=== PATIENT | male | born 1975 | race Caucasian/White ===

== ENCOUNTER 2019-04-11 10:37 | Observation (INO) ==
[2019-04-11 11:13] LABS: Basophils % 0.6 %; Eosinophils # 0.1 K/mcL (0.0-0.6); Eosinophils % 1.9 %; Hematocrit 45.8 % (37.5-50.1); Immature Granulocytes % 0.6 % (0-4); Lymphocytes # 1.8 K/mcL (0.6-4.6); Lymphocytes % 24.5 %; Mean Corpuscular HGB Conc 34.9 g/dL (31.6-35.5); Mean Corpuscular Hemoglobin 30.9 pg (28.0-33.3); Mean Corpuscular Volume 88.6 fL (83.0-100.0); Mean Platelet Volume 9.6 fL (9.4-12.4); Monocytes # 0.6 K/mcL (0.0-1.3); Monocytes % 8.7 %; Neutrophils # 4.6 K/mcL (1.6-8.9); Platelet Count 291 K/mcL (140-400); Red Blood Count 5.17 M/mcL (4.19-5.50); Red Cell Distribution Width 12.3 % (11.5-14.5); Segmented Neutrophils % 63.7 %
[2019-04-11] MEDS ORDERED: Aspirin 325 MG TABLET PO ONE (11:21)
--- NOTE | 2019-04-11 11:26 | Emergency Department Note ---
Disposition Clinical Impression: Hyperglycemia Chest pain Qualifiers: Chest pain type: unspecified Qualified Code(s): R07.9 - Chest pain, unspecified Disposition: Admitted As Inpatient Condition: Fair Referrals: NONE,PCP [Primary Care Provider] - Forms: ED Satisfaction Letter Time of Disposition: 12:20 Chest Pain HPI - General Chief Complaint: ED Chest Pain Stated Complaint: Chest Pain Elevated BP Time Seen by Provider: 04/11/19 10:58 Source: patient Mode of arrival: ambulatory Limitations: no limitations Vital Signs Reviewed: Yes Nursing Notes Reviewed: Yes - History of Present Illness HPI Narrative: 43-year-old male presents for evaluation of chest pain and elevated blood pressure. Patient states he has had intermittent chest pain over the past week. Describes it in multiple locations across his chest. Described as chest pressure. Last 1-2 minutes at a time and then resolves. Patient denies a prior history of any cardiac disease. States he became more concerned today when he became diaphoretic and checked his blood pressure noted to be in the 150 systolic. Patient does not follow with her primary care doctor and does not have a history of elevated blood pressure. Patient states these also had chest pain into his right arm. Patient denies any fevers or cough. No dyspnea. Patient does have family history with heart disease in the 50s. Patient denies any abdominal pain. Patient currently denies any chest pain. No vomiting. No history of DVT or PE. No recent travel. No history of any active malignancies. Severity scale (1-10): 5 - Related Data Allergies Allergy/AdvReac Type Severity Reaction Status Date / Time No Known Allergies Allergy Verified 04/11/19 10:43 All systems ED: reviewed and negative except as stated. Constitutional: Denies: fever Cardiovascular: Reports: chest pain Respiratory: Denies: cough, dyspnea Gastrointestinal: Denies: abdominal pain, nausea, vomiting Chest Pain PMH - Past Medical History Medical history: Reports: no medical history Psychiatric history: Reports: no psych history - Social History Smoking Status: Never smoker Alcohol use: Reports: occasionally Drug use: Reports: none Physical Exam - General Limitations: no limitations General appearance: alert, in no apparent distress - Head Head exam: atraumatic, normocephalic, normal inspection - Eye Eye exam: Present: normal appearance - ENT ENT exam: normal exam - Chest Chest inspection: Present: normal inspection, symmetric chest wall rise - Respiratory Respiratory exam: Present: normal lung sounds bilaterally. Absent: respiratory distress - Cardiovascular Cardiovascular exam: Present: regular rate, normal rhythm. Absent: normal heart sounds - Abdominal Exam Abdominal exam: Present: soft, Non-Tender - Extremities Exam Extremities exam: Present: normal inspection. Absent: pedal edema - Back Exam Back exam: Present: normal inspection - Neurological Exam Neurological exam: Present: alert, oriented X3, CN II-XII intact - Skin Skin exam: Present: warm, dry, intact, normal color Course Course Narrative: Patient seen and examined. Patient does have risk factors for ACS including elevated blood pressure. Patient does have a concerning history of diaphoresis radiation to the right arm as well as intervention chest pain. Even though the patient's pain has been intermittent over a period of time patient would likely benefit from admission for continued ACS evaluation. - Reevaluation(s) Reevaluation #1: Patient's repeat EKG shows normal sinus rhythm. T-wave inversion in 3 and aVF. Unchanged from prior. No ST elevation. No ST depression Time: 11:55 Vital Signs Temperature 98.1 F 04/11/19 10:40 Pulse Rate 76 04/11/19 10:40 Respiratory Rate 16 04/11/19 10:40 Blood Pressure 154/94 04/11/19 10:40 O2 Sat by Pulse Oximetry 100 04/11/19 10:40 Temperature 98.1 F 04/11/19 10:40 Pulse Rate 73 04/11/19 11:58 Respiratory Rate 16 04/11/19 10:40 Blood Pressure 137/97 04/11/19 11:58 O2 Sat by Pulse Oximetry 99 04/11/19 11:58 Oxygen Delivery Oxygen Delivery Room Air Chest Pain - [facility] Narrative Medical decision making narrative: Patient presents for concerns of chest pain. Patient does have a concerning history. Patient has moderate risk heart score. No concerns for PE and/or dissection. Patient does have an abnormal EKG with no prior comparisons. Patient's labs show elevated blood sugar likely secondary to undiagnosed hyperglycemia and diabetes. Patient is also noted be hypertensive. Patient is agreeable with admission. - Lab Data Lab results reviewed: Yes I reviewed the patient's lab results. Result diagrams: 04/11/19 10:59 04/11/19 10:59 Lab Results 04/11/19 04/11/19 Range/Units 10:59 10:59 WBC 7.2 (4.3-11.1) K/mcL RBC 5.17 (4.19-5.50) M/mcL Hgb 16.0 (12.9-16.9) g/dL Hct 45.8 (37.5-50.1) % MCV 88.6 (83.0-100.0) fL MCH 30.9 (28.0-33.3) pg MCHC 34.9 (31.6-35.5) g/dL RDW 12.3 (11.5-14.5) % Plt Count 291 (140-400) K/mcL MPV 9.6 (9.4-12.4) fL Immature Gran % 0.6 (0-4) % Seg Neutrophils % 63.7 % Lymphocytes % 24.5 % Monocytes % 8.7 % Eosinophils % 1.9 % Basophils % 0.6 % Neutrophils # 4.6 (1.6-8.9) K/mcL Lymphocytes # 1.8 (0.6-4.6) K/mcL Monocytes # 0.6 (0.0-1.3) K/mcL Eosinophils # 0.1 (0.0-0.6) K/mcL Basophils # 0.0 (0.0-0.2) K/mcL Sodium 135 L (136-145) mEq/L Potassium 4.0 (3.5-5.1) mEq/L Chloride 102 (98-107) mEq/L Carbon Dioxide 24 (23-29) mEq/L BUN 15 (6-20) mg/dL Creatinine 0.91 (0.70-1.30) mg/dL Est GFR ( Amer) > 60 (> 60) Est GFR (Non-Af Amer) > 60 (> 60) BUN/Creatinine Ratio 16 (6-26) Glucose 314 H (70-105) mg/dL Calculated Osmolality 293 (280-300) Calcium 9.9 (8.6-10.3) mg/dL Troponin I < 0.03 (< 0.04) ng/mL - Radiology Data Radiology results reviewed: Yes I reviewed the patient's radiology results. Chest X-Ray 04/11/19 10:54 IMPRESSION: Negative chest. D/ / Kai Galvan MD / Kai Galvan MD Interpreting Provider: Kai Galvan MD - EKG Data EKG attestation: Yes I reviewed and interpreted this EKG. EKG shows normal: sinus rhythm Rate: normal Rhythm: NSR [place]/QRS: normal T wave inversions noted in: III, aVR, v1 Interpretation: no acute changes, nonspecific ST-T wave changes Heart Score - Score History: Highly Suspicious EKG: Non Specific repolarisation Disturbance Age: Less than 45 Risk Factors: 1-2 risk factors Troponin: Less than normal limit HEART Score Total: 4 S.B.A.R. - S.B.A.R. Situation: Demographics Background: Presenting Complaint Assessment: Vital Signs, Course and respsone to treatment, Patient/Family Expectation Recommendation: Barrier(s) to disposition, Recommendation based on pending studies, treatments, or consults S.B.A.RYoanna Report Given to: Dr. Emeterio GonzalezBYoannaAYuridia Repor Time: 12:20 Attestation Statement - Attestation Attestation: This documentation is done with the assistance of Dragon dictation. Despite efforts made to ensure accuracy, there may be inaccuracies in transcription coordinator or spelling and typographical errors. I examined this patient and my medical decision-making was reviewed with the Resident Physician. I agree with the documented findings, disposition and treatment plan as described except to the extent set forth below. Patient seen and evaluated today by Dr. Covington myself, I agree with his evaluation and management plan, I supervised the care of the patient throughout stay. Patient was at work today, had chest pain and diaphoresis was not short of breath he said last about 2030 minutes and resolve. He states this is happened to him several times before. He does have hypertension no other real risk factors for heart disease except one of his parents had an NC at age 50. He says that he does not a primary care but is establishing with 1. No pain at this time were going to do a workup on him and then reassess. Talked about staying in the hospital versus going home he preferred to go home. We discussed more once all his labs are back he is in agreement with this plan.
[2019-04-11 11:38] LABS: BUN/Creatinine Ratio 16 (6-26); Blood Urea Nitrogen 15 mg/dL (6-20); Calcium 9.9 mg/dL (8.6-10.3); Carbon Dioxide 24 mEq/L (23-29); Chloride 102 mEq/L (98-107); Glucose 314 mg/dL (70-105); Osmolality,Calculated 293 (280-300); Sodium 135 mEq/L (136-145); Troponin I < 0.03 ng/mL (< 0.04); eGFR For Non-African Americans > 60 (> 60)
[2019-04-11] MEDS ORDERED: Acetaminophen 325 MG TABLET PO PRN (12:58)
[2019-04-11] MEDS ORDERED: Naloxone 0.4 MG/ML INJ IVP PRN (12:58)
--- NOTE | 2019-04-11 13:09 | Internal Med History&Physical ---
Date of Encounter: 04/11/19 Time of Encounter: 13:02 Internal Medicine - H&P: HPI Chief complaint: Chest pain Admitted From: Emergency Dept Plans for Post Hospital Care: Home History of present illness: Mr. 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 Patient does not have any recent history of surgeries or being bedbound for a prolonged period of time. He does not also have any history of lower extremity swelling. He denies being a smoker or a lcoholic and does not do IV drugs. He does have a family history positive for heart attack in his father which he is not sure of the age of occurrence. He is not aware of any history of blood clots in his family members. He is no history of any sick contacts recently and does not have any nausea vomiting or diaphoresis at the current time. He denies using any performance-enhancing drugs and denies doing any excessive strenuous activity in the recent past. In the ER the patient was given 1 dose of aspirin with improvement of his pain and an EKG showed a T-wave inversion in lead 3 and not so much in the other contiguous leads. The patient also tells me that he has checked his blood pressure "several times" at the [employer] with the same blood pressure cuff and his blood pressure systolic has ranged from 130s to 140s. He is not on any blood pressure medications. The patient also just recently found a primary care physician and his first appointment is next week The patient's blood glucose level was more than 300 on a BMP check. He is not aware of any diabetes diagnosis that he carries but there is definite diagnosis of type 2 diabetes in his family members .he is not aware of the age of onset of their diabetes Past Med Surg Social Fam HX - Past Medical History Medical history: no medical history Psychiatric history: no psych history - Social History Smoking Status: Never smoker Smokeless Tobacco Status: No Alcohol use: occasionally Drug use: none - Additional Family History Additional family history: Family history positive for heart attack and diabetes unsure of the age of onset Internal Medicine - H&P: Meds Allergy/AdvReac Type Severity Reaction Status Date / Time No Known Allergies Allergy Verified 04/11/19 10:43 All Systems PM: A 10-system review of systems was performed and is negative for pertinent findings except as documented above in the HPI. - Constitutional Vitals: Temp Pulse Resp BP Pulse Ox 98.1 F 73 16 137/97 99 04/11/19 10:40 04/11/19 11:58 04/11/19 10:40 04/11/19 11:58 04/11/19 11:58 Exam: GENERAL: Alert, mild distress, cooperative EYES: PERRLA, EOMI EARS: External ears normal, canals clear OROPHARYNX: Lips, mucosa, and tongue normal. Teeth and gums normal. Oropharynx normal. NECK: No jugulovenous distention, No carotid bruits, Carotid pulse normal contour, Supple LUNGS: Lungs clear to auscultation, Good diaphragmatic excursion CARDIAC: Normal S1 and S2; no rubs, murmurs, or gallops ABDOMEN: Abdomen soft, non-tender, BS normal, No masses or organomegaly EXTREMITIES: Extremities normal, no deformities, edema, clubbing or skin discoloration. Good capillary refill., No ulcers NEURO: Gait normal. Reflexes normal and symmetric. Sensation grossly intact, Cranial nerves II-XII intact PULSES: 2+ radial, 2+ carotid Rest of the exam is non contributory Internal Med - H&P Results - Labs CBC & Chem 7: 04/11/19 10:59 04/11/19 10:59 Labs: Short CBC 04/11/19 Range/Units 10:59 WBC 7.2 (4.3-11.1) K/mcL Hgb 16.0 (12.9-16.9) g/dL Hct 45.8 (37.5-50.1) % Plt Count 291 (140-400) K/mcL Neutrophils # 4.6 (1.6-8.9) K/mcL BMP 04/11/19 10:59 Sodium 135 L Potassium 4.0 Chloride 102 Carbon Dioxide 24 BUN 15 Creatinine 0.91 Glucose 314 H Calcium 9.9 Cardiac Enzymes 04/11/19 Range/Units 10:59 Troponin I < 0.03 (< 0.04) ng/mL - EKG Data -: EKG Interpreted by Myself (T-wave inversion in lead 3, rest of the EKG looks normal) - EKG Data Prior EKG available for review: no - Impressions ITS Impressions Chest X-Ray 04/11/19 10:54 IMPRESSION: Negative chest. D/ / Kai Galvan MD / Kai Galvan MD Interpreting Provider: Kai Galvan MD - Assessment and Plan (1) Essential hypertension Current Visit: Yes Status: Acute Assessment and plan: Patient has been educated to maintain a daily diary of his blood pressures. At this point I am not quite convinced that he needs to be medicated because we need more readings from a blood pressure standpoint. Consider sending the patient home with a blood pressure monitor Low salt diet has been advised (2) Chest pain Current Visit: Yes Status: Acute Assessment and plan: Patient has possible early onset diabetes which is a new diagnosis given his blood sugar He also has hypertension and a family history of coronary artery disease and diabetes all of which are risk factors. We will place him under observation and cycle cardiac enzymes as well as put him on telemetry monitoring. His first EKG is not very concerning to me but I will repeat one in the morning or if he has symptoms. The other differential could be gastritis versus reflux disease for which the tami hernandez already takes omeprazole but infrequently. We could try to give him daily omeprazole for at least 2 weeks duration to see if that helps his symptoms-this can be arranged at discharge Qualifiers: Chest pain type: unspecified Qualified Code(s): R07.9 - Chest pain, unspecified (3) Hyperglycemia Current Visit: Yes Status: Acute Assessment and plan: The patient's random blood sugar as a part of his BMP was 315. He does not have a history of diabetes but this seems to be very high. We will check hemoglobin A1c and serial Accu-Cheks. If his blood sugars come back elevated and we may need to institute sliding scale on him - Time Spent With Patient Total time spent is greater than 50% in coordination of care (as documented) at patient's floor/unit and/or counseling patient:
[2019-04-11 14:06] LABS: Estimated Average Glucose 243 mg/dl; Hemoglobin A1C 10.1 %
[2019-04-11] MEDS: Mag Hydrox/Al Hydrox/Simeth 30 ML UDC PO SCH (17:07)
[2019-04-12] MEDS: Mag Hydrox/Al Hydrox/Simeth 30 ML UDC PO SCH ×3 (00:18→13:18)
--- NOTE | 2019-04-12 04:01 | Electrocardiograph Report ---
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
--- NOTE | 2019-04-12 04:02 | Electrocardiograph Report ---
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
[2019-04-12] MEDS ORDERED: *HR* Dextrose 50 % in Water (Syg) 50 ML SYRINGE IVP PRN (07:41)
[2019-04-12] MEDS ORDERED: Dextrose Gel 15 GM/37.5 ML TUBE PO PRN ×2 (07:41)
[2019-04-12] MEDS ORDERED: D5% in Water 1,000 ML IVC PRN (07:41)
[2019-04-12] MEDS ORDERED: Insulin LISPRO 300 UNITS/3 ML VIAL SQ SCH ×2 (11:30→21:00)
[2019-04-12 11:51] VITALS: BP 130/87
--- NOTE | 2019-04-12 13:28 | Discharge Summary ---
<Serenity Morris - Last Filed: 04/12/19 13:57> - NOTES TO OUTPATIENT PROVIDER Notes to Outpatient Provider: Diagnosis of hypertension and diabetes. New medications include metformin, glimerpiride, and lisinopril Date of Encounter: 04/12/19 Time of Encounter: 13:26 - Discharge Diagnosis (1) Chest pain Priority: Primary Status: Acute Qualifiers: Chest pain type: unspecified Qualified Code(s): R07.9 - Chest pain, unspecified (2) Essential hypertension Priority: Secondary Status: Acute (3) Diabetes mellitus Priority: Secondary Status: Acute Qualifiers: Diabetes mellitus type: other specified (including SAIDA) Diabetes mellitus penitentiary insulin use: without exterminator termite use Diabetes mellitus complication status: without complication Qualified Code(s): E13.9 - Other specified diabetes mellitus without complications Hospital course: Mr. Flores is a 43 year old male who presented with complaint of intermittent chest pain for several days duration. He described chest pain as occurring in different locations over his chest, a burning sensation, lasting several minutes before resolving, and resolving with exertion. He had taken his blood pressure during one of these episodes and found his blood pressure to be 150/95, at this point she he decided to present to the emergency department. He has a past medical history of GERD. He will be establishing with a new PCP in one week in [facility]. The patient had a chest x-ray which showed no acute cardiopulmonary abnormality, an EKG which showed normal sinus rhythm without ST segment changes. Troponins were negative 3. Labs were significant for a glucose level of 314, with subsequent hemoglobin A1c level of 10.1. Patient admitted in order to trend troponins and complete cardiac workup. Patient's chest pain was atypical, with EKG or troponin elevations, less likely to be ischemic in nature. For his new diagnosis of diabetes mellitus, the patient will be started on metformin as well as glimepiride which will need to be further titrated by PCP. Patient will also be started on lisinopril for renal protection as well as hypertension. Vitals were reviewed, chest pain has resolved and patient stable for discharge with follow-up next week with primary care physician. Discharge discussed with: patient - Time Spent with Patient Total time spent providing and/or coordinating discharge services: - Discharge Medications Prescriptions: New Glimepiride [Amaryl] 2 mg PO DAILY #10 tablet metFORMIN [Glucophage] 500 mg PO DAILY #10 tablet Lisinopril [Zestril] 10 mg PO DAILY #10 tablet Continued Non-Formulary Medication 2 tab PO DAILY Multivit-Min/Folic/Vit K/Lycop [Men's Multivitamin Tablet] 2 tab PO DAILY Omeprazole [PriLOSEC] 40 mg PO DAILY PRN PRN Reason: GERD Home Medications: Multivit-Min/Folic/Vit K/Lycop [Men's Multivitamin Tablet] 2 tab PO DAILY 04/11/19 [History] Non-Formulary Medication 2 tab PO DAILY 04/11/19 [History] Omeprazole [PriLOSEC] 40 mg PO DAILY PRN 04/11/19 [History] Glimepiride [Amaryl] 2 mg PO DAILY #10 tablet 04/12/19 [Rx] Lisinopril [Zestril] 10 mg PO DAILY #10 tablet 04/12/19 [Rx] metFORMIN [Glucophage] 500 mg PO DAILY #10 tablet 04/12/19 [Rx] Allergies/Adverse Reactions: Allergy/AdvReac Type Severity Reaction Status Date / Time No Known Allergies Allergy Verified 04/11/19 13:55 Date of admission: 04/11/19 13:19 Primary care physician: PCP NONE Discharging clinician: Serenity Morris Anticipated date of discharge: 04/12/19 - Constitutional Vitals: Temp Pulse Resp BP Pulse Ox 98.2 F 63 14 130/87 97 04/12/19 11:44 04/12/19 11:44 04/12/19 11:44 04/12/19 11:44 04/12/19 11:44 Exam: Gen: Vitals noted. No acute distress. AAOx3 HEENT: PERRL/EOMI, oropharynx clear, Normocephalic, atraumatic, MMM Cardiac: RRR, no murmur, +S1/S2, radial and dorsal pedis pulses 3+ and symmetrical, no chest wall tenderness to palpation. Pulmonary: CTA bilaterally, no wheezes, rales or rhonchi, equal chest expansion Abdomen: soft, nontender, BS noted, no guarding, no rebound. MSK: ROM intact, no joint swelling noted Extremities: no BLE edema, no calf tenderness, no cyanosis or clubbing Neuro: A&Ox3, moves all extremities, no focal deficits Psych: Appropriate mood and behavior - Patient Status Disposition: Home, Self-Care Condition: Good Functional capacity at discharge: independent ambulation Overall status at discharge: patient is back to baseline - Discharge Instructions Instructions: How to Check Your Blood Sugar (DC), Diabetic Ketoacidosis (DC), Diabetic Foot Care (DC), Diabetic Hypoglycemia (DC), Diabetes Mellitus Type 2 in Adults (DC), Diabetic Hyperglycemia (DC) Follow Up With: NONE,PCP [Primary Care Provider] - - Diet and Activity Activity: increase activity as tolerated Diet: diabetic diet <Angie Gonzalez - Last Filed: 04/12/19 17:50> Date of Encounter: 04/12/19 - Discharge Diagnosis (1) Chest pain Status: Acute Qualifiers: Chest pain type: unspecified Qualified Code(s): R07.9 - Chest pain, unspecified (2) Hyperglycemia Status: Acute (3) Essential hypertension Status: Acute Hospital course: Mr. Flores is a 43 year old male - Time Spent with Patient Total time spent providing and/or coordinating discharge services: Date of admission: 04/11/19 13:19 Primary care physician: PCP NONE - Constitutional Vitals: Temp Pulse Resp BP Pulse Ox 98.2 F 63 14 130/87 97 04/12/19 11:44 04/12/19 11:44 04/12/19 11:44 04/12/19 11:44 04/12/19 11:44 - Attending Attestation I examined this patient and my medical decision-making was reviewed with the Resident Physician. I agree with the documented findings, disposition and treatment plan as described except to the extent set forth below. Chest pain was atypical in nature. No SOB. VS stable. Symptoms have resolved. Patient seen to have significantly elevated glucose and an A1C was 10%. Patient stable for discharge. Ideally would start patient on insulin for home but patient wants to avoid insulin as much as possible. Will be sent home with double oral therapy with close follow-up with primary care physician in 2-3 days. Also recommend Endocrinology consult. Patient is from out of town and agrees to be seen by PCP soon.
== END 2019-04-12 14:07 | disposition home or self-care (01) ==
LOC: EMEROOARM 10:37 → 2SOUTHHOLD 10:37 → SUATTDRO 13:19 → 2SOUTHHOLD 13:44
PROVIDERS: ADMIT Student in an Organized Health Care Education/Training Program; ATTEND Student in an Organized Health Care Education/Training Program